=== PATIENT | female | born 2000 | race Caucasian/White ===

== ENCOUNTER 2021-05-16 19:31 | Inpatient (IN) | payer OTHER ==
[~2021-05-16 19:31] MED LIST: Bupivacaine 0.25% HCL 30 ML VIAL ONE
[2021-05-16 20:17] VITALS: BMI 31.5
[2021-05-16] MEDS: Lactated Ringer's 1,000 ML IV SCH (20:30)
[2021-05-16] MEDS ORDERED: Promethazine HCl 25 MG/ML VIAL IM PRN (20:38)
[2021-05-16] MEDS ORDERED: Misoprostol 200 MCG TAB PR PRN (20:38)
[2021-05-16] MEDS ORDERED: NS w/ Oxytocin 30 units 500 ML IV SCH ×2 (20:38)
[2021-05-16] MEDS ORDERED: Ondansetron PF 4 MG/2 ML Vial IVP PRN (20:38)
[2021-05-16] MEDS ORDERED: Lidocaine 1% (PF) 30 ML VIAL SC PRN (20:38)
[2021-05-16] MEDS ORDERED: Ibuprofen 800 MG TAB PO PRN (20:38)
[2021-05-16] MEDS ORDERED: Methylergonovine 0.2 MG/ML VIAL IM PRN (20:38)
[2021-05-16] MEDS ORDERED: Butorphanol Tartrate 1 MG/ML VIAL SLOW IVP PRN (20:38)
[2021-05-16] MEDS ORDERED: HYDROcodone/Acetaminophen 5/325 mg Tablet PO PRN (20:38)
[2021-05-16] MEDS ORDERED: Acetaminophen 500 MG TAB PO PRN (20:38)
[2021-05-16] MEDS ORDERED: hydrALAZINE 20 MG/ML VIAL SLOW IVP PRN (20:38)
[2021-05-16 22:04] LABS: Hemoglobin 10.2 g/dL (12.0-15.5); Mean Corpuscular HGB CONC 31.7 g/dL (32.0-36.0); Mean Corpuscular Hemoglobin 26.2 pg (27.0-33.0); Mean Corpuscular Volume 82.8 fl (81.6-98.3); Platelet Count 291 10x3/uL (150-450); RBC Distribution Width 17.5 % (11.5-14.5); Red Blood Cell (RBC) Count 3.89 10x6/uL (3.90-5.03); White Blood Cell (WBC) Count 10.2 10x3/uL (3.5-10.5)
[2021-05-16] MEDS: Misoprostol 100 MCG TAB VAG SCH (22:13)
[2021-05-16 22:40] LABS: Hep B Surf Ag Non-Reactive S/CO (NonReactive); Syphilis Antibody Nonreactive (Nonreactive); Syphilis Antibody Index 0.07 S/CO (<1.00 Non-Reactive)
[2021-05-16 22:44] LABS: HBSAg Index 0.22 S/CO (0-0.99)
[2021-05-16 23:43] LABS: SARS-CoV-2 NAA Rapid Test Not Detected (NotDetected)
[2021-05-17] MEDS: Misoprostol 100 MCG TAB VAG SCH ×4 (02:02→16:35)
[2021-05-17] MEDS ORDERED: Fentanyl 2 mcg/Bup 0.1% Cadd 100 ML ONE (08:33)
[2021-05-17] MEDS: Lactated Ringer's 1,000 ML IV SCH ×2 (09:41→13:45)
[2021-05-17] MEDS ORDERED: diphenhydrAMINE 50 MG/ML VIAL IVP PRN (09:49)
[2021-05-17] MEDS ORDERED: Lactated Ringer's 500 ML IV PRN (09:49)
[2021-05-17] MEDS ORDERED: Naloxone HCl 0.4 mg/ml Vial IVP PRN ×2 (09:49)
[2021-05-17] MEDS ORDERED: ePHEDrine Sulfate 50 MG/10 ML VIAL SLOW IVP PRN (09:49)
[2021-05-17] MEDS ORDERED: Acetaminophen 325 MG TAB PO PRN (09:49)
[2021-05-17] MEDS ORDERED: Promethazine HCl 25 MG/ML VIAL IM PRN (09:49)
[2021-05-17] MEDS ORDERED: Hydrocerin (Eucerin) Cream 120 gm Jar TOP PRN (09:49)
[2021-05-17] MEDS ORDERED: Ondansetron PF 4 MG/2 ML Vial IVP PRN ×2 (09:49→17:21)
[2021-05-17] MEDS ORDERED: Communication Order-Pharmacy FS SCH (10:00)
[2021-05-17] MEDS ORDERED: Fentanyl 2 mcg/Bupivacaine 0.1% Cassette 100 ML EPIDURAL SCH (10:00)
[2021-05-17] MEDS ORDERED: hydrALAZINE 20 MG/ML VIAL SLOW IVP PRN (17:21)
[2021-05-17] MEDS ORDERED: HYDROcodone/Acetaminophen 5/325 mg Tablet PO PRN ×2 (17:21)
[2021-05-17] MEDS ORDERED: NS w/ Oxytocin 30 units 500 ML IV PRN (17:21)
[2021-05-17] MEDS ORDERED: Bisacodyl 10 MG SUPP PR PRN (17:21)
[2021-05-17] MEDS ORDERED: Misoprostol 200 MCG TAB VAG PRN (17:21)
[2021-05-17] MEDS ORDERED: Methylergonovine 0.2 MG/ML VIAL IM PRN (17:21)
[2021-05-17] MEDS ORDERED: Milk Of Magnesia 30 ML UDCUP PO PRN (17:21)
[2021-05-17] MEDS ORDERED: Benzocaine-Menthol 82.5 ML CAN TOP PRN (17:21)
[2021-05-17] MEDS ORDERED: Boostrix 0.5 ML (Tdap) VIAL IM ONE (17:21)
[2021-05-17] MEDS: Ferrous Sulfate 325 MG TAB PO SCH (18:14)
[2021-05-17] MEDS: Docusate Calcium (SURFAK) 240 MG CAP PO SCH (22:07)
[2021-05-17] MEDS: Ibuprofen 800 MG TAB PO SCH (22:07)
[2021-05-18] MEDS: Ibuprofen 800 MG TAB PO SCH ×3 (06:40→21:59)
[2021-05-18] MEDS: Ferrous Sulfate 325 MG TAB PO SCH ×2 (08:23→19:27)
[2021-05-18] MEDS: Prenatal Vitamin 1 TAB PO SCH (08:25)
[2021-05-18] MEDS: Docusate Calcium (SURFAK) 240 MG CAP PO SCH ×2 (08:25→21:59)
[2021-05-18] MEDS ORDERED: Lanolin Ointment 7 GM TUBE TOP SCH (22:15)
[2021-05-19] MEDS: Ibuprofen 800 MG TAB PO SCH (06:23)
[2021-05-19 07:58] VITALS: BP 114/66; TEMP 98.2
[2021-05-19] MEDS: Ferrous Sulfate 325 MG TAB PO SCH (08:05)
[2021-05-19] MEDS: Prenatal Vitamin 1 TAB PO SCH (08:42)
[2021-05-19] MEDS: Docusate Calcium (SURFAK) 240 MG CAP PO SCH (08:42)
== END 2021-05-19 14:30 | disposition home or self-care (01) | DRG 807 ==
LOC: CSHLD 19:31 → CSHPP 05-17 17:25
PROVIDERS: ADMIT Student in an Organized Health Care Education/Training Program; ATTEND Student in an Organized Health Care Education/Training Program
PROC: 10E0XZZ Delivery of Products of Conception, External Approach (ICD-10-PCS; principal; 2021-05-17)
PROC: 0UQMXZZ Repair Vulva, External Approach (ICD-10-PCS; 2021-05-17)
PROC: 3E0334Z Introduction of Serum, Toxoid and Vaccine into Peripheral Vein, Percutaneous Approach (ICD-10-PCS; 2021-05-18)
DX: O69.1XX0 Labor and delivery complicated by cord around neck, with compression, not applicable or unspecified (principal); Z37.0 Single live birth; Z20.822 Contact with and (suspected) exposure to COVID-19; D50.9 Iron deficiency anemia, unspecified; O99.02 Anemia complicating childbirth; Z3A.39 39 weeks gestation of pregnancy; O71.82 Other specified trauma to perineum and vulva; O70.0 First degree perineal laceration during delivery; Z23 Encounter for immunization
CPT/HCPCS: 36415; 36416; 51702; 85027; 85461; 86780; 86850; 86900; 86901; 87340; 90384; 96372; 99285; J0595; J2405; J2590; J7120; S0020; U0002